=== PATIENT | female | born 1985 | race African-American/Black ===

== ENCOUNTER 2020-11-03 12:20 | Emergency (ER) | payer OTHER ==
[~2020-11-03] VITALS: Ht 170.2 cm; Wt 78.0 kg
[2020-11-03] MEDS ORDERED: ONDANSETRON HCL 4MG/2ML INJ IV STA (12:46)
[2020-11-03] MEDS ORDERED: SODIUM CHLORIDE 0.9% 1,000 ML IV ONE (13:00)
[2020-11-03] MEDS ORDERED: PANTOPRAZOLE SODIUM 40 MG/VIAL IV ONE (13:00)
[2020-11-03 14:00] LABS: HEMATOCRIT. 37.7 % (36.0-48.0); HEMOGLOBIN. 12.7 g/dL (12.0-16.0); MEAN CORPUSCULAR HEMOGLOBIN 32.3 pg (28.0-32.0); MEAN CORPUSCULAR VOLUME 95.9 fL (81.0-99.0); MEAN PLATELET VOLUME 8.3 fl (7.4-10.4); PLATELET 284 x1000/uL (130-400); RED BLOOD CELL COUNT 3.93 mill/uL (4.2-5.4); RED CELL DISTRIBUTION WIDTH 12.6 % (11.6-14.6)
[2020-11-03 14:10] LABS: HCG SCREEN NEGATIVE; PLATELET ESTIMATE NORMAL
[2020-11-03 14:12] LABS: CHLORIDE 109 mEq/L (98-107)
[2020-11-03 14:15] LABS: ETHANOL BLOOD < 10 mg/dL
[2020-11-03] MEDS ORDERED: DICYCLOMINE HCL 10MG/ML 2ML AMP IM ONE (14:30)
[2020-11-03 17:00] VITALS: BP 131/89
== END 2020-11-03 18:17 | disposition left against medical advice (07) ==
LOC: ER 12:20
DX: R11.2 Nausea with vomiting, unspecified (principal); R10.84 Generalized abdominal pain; F12.10 Cannabis abuse, uncomplicated; R06.4 Hyperventilation
CPT/HCPCS: 36415; 80053; 80320; 83690; 84703; 85025; 96372; 96374; 96375; 99284; C9113; J0500; J2405; J7030; G0480